=== PATIENT | female | born 1995 | race Hispanic/Latino ===

== ENCOUNTER 2020-09-25 08:52 | Day surgery (SDC) | payer OTHER, MEDICAID ==
[2020-09-25] VITALS (19 sets, daily range): BP systolic 107–135; BP diastolic 54–99
[~2020-09-25] VITALS: Ht 160 cm; Wt 113.4 kg
[~2020-09-25 08:52] MED LIST: IOHEXOL-350 50ML VIAL IV ONE; PREN-18 PO; SODIUM CHLORIDE 0.9% 1000ML 1,000 ML IV ONE
[2020-09-25] MEDS ORDERED: MIDAZOLAM HCL 1 MG/ML 2ML VIAL ONE (10:45)
[2020-09-25] MEDS ORDERED: SUCCINYLCHOLINE 200MG/10ML SYR ONE (10:45)
[2020-09-25] MEDS ORDERED: ONDANSETRON HCL 4 MG/2 ML VIAL ONE ×2 (10:45→12:01)
[2020-09-25] MEDS ORDERED: DEXAMETHASONE SOD PHOSPHATE 10MG/ML 1ML VIAL ONE (10:45)
[2020-09-25] MEDS ORDERED: PROPOFOL 10 MG/ML 20ML VIAL IV ONE ×3 (10:45→11:35)
[2020-09-25] MEDS ORDERED: LIDOCAINE PF 2% 5ML ABBOJECT ONE (10:45)
[2020-09-25] MEDS ORDERED: GLYCOPYRROLATE 1 MG/5 ML SYRINGE ONE (10:45)
[2020-09-25] MEDS ORDERED: ROCURONIUM 10MG/1ML SYR 10 MG/ML ML ONE (10:45)
[2020-09-25] MEDS ORDERED: FENTANYL CITRATE PF 50 MCG/1 ML 2ML VIAL ONE (10:46)
[2020-09-25] MEDS ORDERED: INDOMETHACIN 50 MG SUPP.RECT RC ONE ×2 (12:00)
== END 2020-09-25 13:30 | disposition home or self-care (01) ==
LOC: DAH 08:52 → ENDO 08:52
PROVIDERS: ATTEND Internal Medicine Gastroenterology
DX: Z46.59 Encounter for fitting and adjustment of other gastrointestinal appliance and device (principal); K80.51 Calculus of bile duct without cholangitis or cholecystitis with obstruction; Z20.822 Contact with and (suspected) exposure to COVID-19; Z90.49 Acquired absence of other specified parts of digestive tract; Z98.891 History of uterine scar from previous surgery; Z79.899 Other long term (current) drug therapy; Z98.890 Other specified postprocedural states
CPT/HCPCS: 43265; 43273; 43275; 74328; A4215; A4221; A4222; A4223; A4606; A4663; C1769 ×2; C1773; C9803; J0330; J1100; J2001; J2405 ×2; J2704 ×3; J3010; J3490; J7030 ×2; Q9967; U0003; 74330; J2250